=== PATIENT | female | born 1990 | race Caucasian/White ===

== ENCOUNTER 2017-05-10 05:38 | Day surgery (SDC) | payer OTHER ==
[2017-05-10] VITALS (9 sets, daily range): BP systolic 96–107; BP diastolic 63–77; Ht 165.1 cm; Wt 60.0 kg
[~2017-05-10] VITALS: Ht 165.1 cm; Wt 60.0 kg
--- NOTE | ~2017-05-10 | OP ---
PATIENT NAME: ELSIE MESSINA MEDICAL RECORD: [id number] :89 LOCATION:[id number] ADMISSION DATE: SURGEON: SANTOS KIRAN MD OPERATION DATE: 05/10/17 PREOPERATIVE DIAGNOSIS: Right thyroid nodule. POSTOPERATIVE DIAGNOSIS: Right thyroid nodule. PROCEDURE: Right thyroid lobectomy. SURGEON: Santos Kiran MD ANESTHESIA: General orotracheal. BLOOD LOSS: Less than 10 mL. SPECIMENS: Right thyroid lobe. FINDINGS: Frozen section benign follicular cystic adenoma. COMPLICATIONS: None. DRAIN: Single drain through the incision. DISPOSITION: Recovery, stable. PROCEDURE IN DETAIL: The patient was brought to the operating room, placed in the supine position, sedated and intubated by anesthesia. She was positioned, prepped and draped in the usual sterile fashion. The skin for incision between the cricoid and the sternal notch was injected with 0.5 mL of 1% lidocaine without epinephrine on a long 27-gauge needle. A horizontal incision was made with a 10-blade. This was taken down through the platysma layer. Flaps were elevated superiorly and inferiorly, and four separate 2-0 silk drain retraction sutures were placed. The fascia was divided in the midline with a tonsil clamp and cautery through the layers and the midline to expose the thyroid isthmus. The right thyroid was dissected out bluntly, and Army-Amado retractor was used to hold the strap musculature laterally while the thyroid was dissected. This was dissected down laterally. The middle thyroid vein was layered with 2-0 silk tie. The inferior thyroid was dissected taken down some fascia, and the recurrent laryngeal nerve was identified. An inferior parathyroid was also dissected off of the thyroid gland inferiorly. Once that was completed, the recurrent laryngeal nerve was followed superiorly as the gland was rotated medially and dissected away from surrounding tissue using a combination of bipolar cautery and silk ties. Then the superior pedicle was dissected out. A right angle clamp was used to isolate the vascular pedicle which was clamped and tied with a 2-0 silk tie and then taken down. The superior parathyroid was dissected off the capsule as well. The gland was rotated medially. Cotton pledget 0.5 x 3 and Jakes were used to take down small vasculature with bipolar cautery along Krishnamurthy's ligament and reflected gland medially until the isthmus could be clamped across the midline and taken down with scissors. The isthmus was tied with 2-0 silk tie. The specimen was sent for path which returned benign follicular adenoma. The wound was irrigated cautiously and carefully examined. It was completely clean and dry. A drain was placed into the wound through the incision. The strap muscles were loosely medialized with two separate 4-0 Vicryl sutures and then the platysma layer. The head was positioned slightly OPERATIVE REPORT [id number] ELSIE MESSINA flexed, and the incision was closed with running subcuticular 6-0 Prolene. A 2-0 silk drain stitch was applied. The wound was dressed with Steri-Strips and Mastisol. She was awakened, extubated, and transported to recovery in good condition. No complications. SANTOS KIRAN MD CC: [id number] DICTATION DATE: 05/10/17 1300 LAMINATING MACHINE TENDER: CHELI 05/10/17 1601 [facility] [address] [place] [id number]
[~2017-05-10 05:38] MED LIST: ADDERALL 20 MG20 M1 PO; KLONOPIN1 MG PO
[2017-05-10 09:13] LABS: HCG URINE NEGATIVE (NEGATIVE)
[2017-05-10 09:20] LABS: HEMATOCRIT 41.2 % (36.0-48.0); HEMOGLOBIN 13.5 g/dL (12-16); MCH 29.9 pg (26.0-34.0); MCHC 32.8 g/dL (31.0-37.0); MCV 91.2 fL (80.0-100.0); MEAN PLATELET VOLUME 9.6 fL (7.4-10.4); RBC 4.52 10x6/uL (4.00-5.40); RDW 13.3 % (11.5-14.5); WBC 6.6 10x3/uL (4.8-10.8)
--- NOTE | 2017-05-10 15:00 | NUR ---
PATIENT TO ROOM AT THIS TIME WITH VS STABLE. NO COMPLAINTS. IV INTACT. DRAIN WITH SPONGE GAUZE CLEAN AND IN PLACE. FAMILY AT BEDSIDE. CALL LIGHT WITHIN REACH.
--- NOTE | 2017-05-10 15:30 | NUR ---
PATIENT IN BED WITH IV INTACT. EYES CLOSED RESTING. DRESSING TO DRAIN CLEAN AND DRY. CALL LIGHT WITHIN REACH.
--- NOTE | 2017-05-10 17:15 | NUR ---
PATIENT SITTING UP TRYING TO EAT AT THIS TIME. IV INTACT. WILL GIVE NAUSEA MEDS AFTER ORDER RECIEVED FROM DR. KIRAN.
--- NOTE | 2017-05-10 18:37 | NUR ---
PATIENT IN BED SIPPING ON BROTH WITH NO PROBLEMS. IV INTACT. JEAN CLAUDE INTACT. DRESSING CLEAN AND DRY. FAMILY AT BEDSIDE. CALL LIGHT WITHIN REACH.
[2017-05-11] VITALS: BP 94/63
[2017-05-11 04:00] VITALS: BP 93/49
--- NOTE | 2017-05-11 07:00 | NUR ---
REPORT RECIEVED ASSUMED CARE. PATIENT IN BED WITH IV INTACT. NO COMPLAINTS AT THIS TIME. FAMILY AT BEDSIDE. CALL LIGHT WITHIN REACH.
[2017-05-11 08:08] VITALS: BP 93/53
[2017-05-11] MEDS ORDERED: ZOFRAN4 MG PO (08:24)
[2017-05-11] MEDS ORDERED: HYDROCODON-ACE1 EAC7 PO (08:24)
--- NOTE | 2017-05-11 09:15 | NUR ---
ASSESSMENT COMPLETE, VS STABLE. DRAIN REMOVED BY PHYSICIAN. INCISION CLEAN AND DRY. STERI STRIPS INTACT. NO COMPLAINTS. CALL LIGHT WITHIN REACH.
--- NOTE | 2017-05-11 10:07 | NUR ---
PATIENT RECIEVED DISCHARGE INSTRUCTIONS AT THIS TIME. VERBALIZED UNDERSTANDING AND NO QUESTIONS AT THIS TIME. IV REMOVED WITH CATH TIP INTACT. STATED SHE WOULD CALL WHEN READY FOR WC.
== END 2017-05-11 10:15 | disposition home or self-care (01) ==
LOC: D.OPS 05:38 → D.PAN 11:15 → D.OPS 11:15 → D.MS 14:10 → D.OPS 05-11 10:15
PROVIDERS: Anesthesiology; Otolaryngology
DX: D34 Benign neoplasm of thyroid gland (principal); Z01.812 Encounter for preprocedural laboratory examination